=== PATIENT | female | born 1995 | race Caucasian/White ===

== ENCOUNTER 2021-10-22 13:55 | Inpatient (IN) | payer MEDICAID ==
[~2021-10-22] VITALS: Ht 165.1 cm; Wt 119.7 kg
[2021-10-22] MEDS ORDERED: LR 1,000 ML IV ONE (15:00)
[2021-10-22] MEDS ORDERED: TERBUTALINE SULFATE 1 MG/ML VIAL SUBCUT ONE (15:00)
[2021-10-22] MEDS ORDERED: OXYTOCIN/0.9 % SODIUM CHLORIDE 1,000 ML IV SCH (15:00)
[2021-10-22 15:46] LABS: BASOPHILS % (AUTO) 0.4 % (0.0-2.0); EOSINOPHILS # (AUTO) 0.1 K/uL (0.0-0.4); EOSINOPHILS % (AUTO) 1.1 % (0.0-4.0); HEMOGLOBIN 13.3 g/dL (12.0-16.0); LYMPHOCYTES # (AUTO) 1.6 K/uL (1.0-5.5); LYMPHOCYTES % (AUTO) 21.1 % (20.5-51.5); MEAN CORPUSCULAR HEMOGLOBIN 31 pg (27-31); MEAN CORPUSCULAR HGB CONC 34 % (32-36); MEAN CORPUSCULAR VOLUME 90 fL (79.0-98.0); MONOCYTES # (AUTO) 0.6 K/uL (0.0-1.0); MONOCYTES % (AUTO) 8.3 % (1.7-9.3); NEUTROPHILS # (AUTO) 5.2 K/uL (1.8-7.7); NEUTROPHILS % (AUTO) 69.1 % (40.0-70.0); PLATELET COUNT (AUTO) 150 K/uL (130-430); RED BLOOD CELL COUNT(AUTO) 4.35 MIL/uL (4.2-6.2); RED CELL DISTRIBUTION WIDTH 13.7 % (9.0-15.0); WHITE BLOOD COUNT (AUTO) 7.5 K/uL (4.8-10.8)
[2021-10-22] MEDS: LR 1,000 ML IV SCH ×2 (16:23→18:54)
[2021-10-22 16:33] LABS: BILIRUBIN,URINE NEGATIVE (NEGATIVE); BLOOD, URINE 1+ (NEGATIVE); CLARITY/URINE CLEAR (CLEAR); COLOR,URINE YELLOW (YELLOW); GLUCOSE,URINE NEGATIVE (NEGATIVE); KETONES,URINE TRACE (NEGATIVE); LEUKOCYTE ESTERASE ,URINE 3+ (NEGATIVE); NITRITE, URINE NEGATIVE (NEGATIVE); PH,URINE 6.5 (5.0-8.0); PROTEIN URINE NEGATIVE (NEGATIVE); UROBILINOGEN,URINE 0.2 (0.2-1.0)
[2021-10-22 17:02] LABS: BACTERIA,URINE FEW /HPF (None Seen); WBC,URINE 20-50 /HPF (0-3)
[2021-10-22 17:03] LABS: CALCIUM OXALATE CRYSTALS,UR 0-10 /HPF (None Seen); MUCUS,URINE 2+ /LPF (None Seen)
[2021-10-22] MEDS ORDERED: LIDOCAINE PF 1% 30ML(POUR BTL) INJ ONE (17:35)
[2021-10-22] MEDS ORDERED: NALOXONE HCL 0.4 MG/ML AMP (NARCAN) ONE (17:35)
[2021-10-22] MEDS ORDERED: LIGHT MINERAL OIL 10 ML VIAL MC ONE (17:35)
[2021-10-22 17:59] LABS: CALCIUM 8.3 mg/dL (8.4-11.0)
[2021-10-22 18:00] LABS: ALBUMIN 2.6 g/dL (3.4-4.8); CREATININE 0.81 mg/dL (0.55-1.30); TOTAL BILIRUBIN 0.1 mg/dL (0.0-1.0)
[2021-10-22] MEDS ORDERED: cefTRIAXone 1 GM in D5W 50 ML IV ONE (18:00)
[2021-10-22] MEDS ORDERED: fentaNYL CITRATE/PF 100 MCG/2 ML AMP ONE (19:19)
[2021-10-22] MEDS ORDERED: LR 500 ML IV ONE (19:30)
[2021-10-22] MEDS ORDERED: FENT2mCg/mL-ROPIVA0.2%/NS EPID 200 ML EP SCH (19:30)
[2021-10-22] MEDS ORDERED: DIPHENHYDRAMINE INJ 50 MG/ML VIAL IVP PRN (20:45)
[2021-10-23] MEDS ORDERED: ANUSOL 1 EA SUPP.RECT (PREPARATION H) RC PRN (00:30)
[2021-10-23] MEDS ORDERED: OXYTOCIN/0.9 % SODIUM CHLORIDE 1,000 ML IV ONE (00:30)
[2021-10-23] MEDS ORDERED: OXYCODONE/ACETAMINOPHEN 5-325 TABLET PO PRN (00:30)
[2021-10-23] MEDS ORDERED: DIPH-TET-PERTUS Vaccine 0.5 ML VIAL (ADACEL) I.M. PRN (00:30)
[2021-10-23] MEDS ORDERED: MEASLES,MUMPS&RUBELLA VACC/PF 12500 UNIT/0.5 ML VIAL SUBQ PRN (00:30)
[2021-10-23] MEDS ORDERED: LANOLIN 7 GM OINT. TP PRN (00:30)
[2021-10-23] MEDS ORDERED: NALOXONE HCL 0.4 MG/ML AMP (NARCAN) IVP PRN (00:30)
[2021-10-23] MEDS ORDERED: METHYLERGONOVINE MALEATE 0.2 MG TABLET PO PRN (00:30)
[2021-10-23] MEDS ORDERED: HYDROcodone/ACETAMIN 5-325 MG TAB (NORCO/ VICODIN) PO PRN (00:30)
[2021-10-23] MEDS ORDERED: DERMOPLAST SPRAY TP PRN (00:30)
[2021-10-23] MEDS ORDERED: RHO(D) IMMUNE GLOBULIN/MALTOSE 1500 UNITS/1.3 ML (WINHRO) IM PRN (00:30)
[2021-10-23] MEDS ORDERED: WITCH HAZEL LEAF 1 MED.PAD MED.PAD TP PRN (02:00)
[2021-10-23 04:03] LABS: HEMATOCRIT 37.7 % (36-48); HEMOGLOBIN 12.6 g/dL (12.0-16.0)
[2021-10-23] MEDS: IBUPROFEN 600 MG TABLET PO SCH ×3 (05:57→18:32)
[2021-10-23] MEDS: OXYCODONE/ACETAMINOPHEN 5-325 TABLET PO PRN ×2 (11:58→15:23)
[2021-10-24] MEDS ORDERED: SENNOSIDES/DOCUSATE SODIUM 1 TAB TABLET(SENOKOT-S) PO SCH
[2021-10-24] MEDS: DOCUSATE SODIUM 100 MG CAPSULE PO SCH ×2 (00:25→09:54)
[2021-10-24] MEDS: IBUPROFEN 600 MG TABLET PO SCH ×3 (00:25→12:04)
== END 2021-10-24 14:30 | disposition home or self-care (01) | DRG 560 ==
LOC: SPU 13:55
PROVIDERS: ADMIT Obstetrics & Gynecology; ATTEND Obstetrics & Gynecology
PROC: 10E0XZZ Delivery of Products of Conception, External Approach (ICD-10-PCS; principal; 2021-10-22)
PROC: 0HQ9XZZ Repair Perineum Skin, External Approach (ICD-10-PCS; 2021-10-22)
PROC: 10907ZC Drainage of Amniotic Fluid, Therapeutic from Products of Conception, Via Natural or Artificial Opening (ICD-10-PCS; 2021-10-22)
PROC: 3E033VJ Introduction of Other Hormone into Peripheral Vein, Percutaneous Approach (ICD-10-PCS; 2021-10-22)
PROC: 3E0R3BZ Introduction of Anesthetic Agent into Spinal Canal, Percutaneous Approach (ICD-10-PCS; 2021-10-22)
PROC: 00HU33Z Insertion of Infusion Device into Spinal Canal, Percutaneous Approach (ICD-10-PCS; 2021-10-22)
PROC: 3E0234Z Introduction of Serum, Toxoid and Vaccine into Muscle, Percutaneous Approach (ICD-10-PCS; 2021-10-23)
DX: O13.4 Gestational [pregnancy-induced] hypertension without significant proteinuria, complicating childbirth (principal); Z37.0 Single live birth; O75.3 Other infection during labor; O26.893 Other specified pregnancy related conditions, third trimester; Z20.822 Contact with and (suspected) exposure to COVID-19; N39.0 Urinary tract infection, site not specified; O70.0 First degree perineal laceration during delivery; Z3A.38 38 weeks gestation of pregnancy; Z67.41 Type O blood, Rh negative
CPT/HCPCS: 36415; 80053; 81000; 85018; 85025; 86592; 86886; 86900; 86901; 87086; 94760; J0696; J1200; J2001; J2310; J2590; J2790; J3010; J7060